=== PATIENT | female | born 1965 | race Caucasian/White ===

== ENCOUNTER → 2017-01-15 | Outpatient (CLI) | payer BC | END | disposition home or self-care (01) | LOC: LAB 13:07 | PROVIDERS: ATTEND Specialist | DX: D25.9 Leiomyoma of uterus, unspecified (principal) | CPT/HCPCS: 36415; 82565; 84520; 84702 ==

== ENCOUNTER → 2018-01-12 | Outpatient (CLI) | payer BC ==
[2018-01-12 09:47] LABS: Basophils # (auto) 0.1 uL; Basophils % (auto) 1.3 % (0.0-2.0); Eosinophils # (auto) 0.3 uL; Hematocrit 44.9 % (36.0-46.0); Hemoglobin 15.1 g/dL (12.2-16.2); Lymphocytes # (auto) 1.4 uL; Lymphocytes % (auto) 29.2 % (10.0-50.0); Mean Corpuscular Hemoglobin 30.1 pg (28.0-32.0); Mean Corpuscular Hgb Conc. 33.6 g/dL (32.0-36.0); Mean Corpuscular Volume 89.7 fL (80.0-100.0); Monocytes # (auto) 0.2 uL; Monocytes % (auto) 5.2 % (0.0-12.0); Neutrophils # (auto) 2.7 uL; Neutrophils % (auto) 57.3 % (37.0-80.0); Platelet Count (auto) 249 10^3/uL (140-450); Red Cell Distribution Width 12.8 % (11.8-14.3); White Blood Cell 4.8 10^3/uL (4.4-10.8)
[2018-01-12 09:49] LABS: Urine Bacteria NONE SEEN /hpf (None Seen); Urine Blood Negative /uL (Negative); Urine Specific Gravity 1.018 (1.001-1.035); Urine WBC 1 /hpf (0 - 5)
[2018-01-12 10:41] LABS: Albumin 3.8 g/dL (3.4-5.0); BUN/Creatinine Ratio 17.6; Bilirubin, Total 0.6 mg/dL (0.2-1.0); Calcium 9.3 mg/dL (8.5-10.1); Potassium 4.2 mmol/L (3.5-5.1); Total Protein 7.7 g/dL (6.4-8.2)
== END | disposition home or self-care (01) ==
LOC: LAB 08:59
PROVIDERS: ATTEND Family Medicine
DX: Z00.01 Encounter for general adult medical examination with abnormal findings (principal); K59.00 Constipation, unspecified; R42 Dizziness and giddiness; F41.9 Anxiety disorder, unspecified
CPT/HCPCS: 36415; 80053; 80061; 81001; 82306; 84443; 85025